=== PATIENT | female | born 1930 | race Caucasian/White ===

== ENCOUNTER 2016-10-30 10:46 | Emergency (ER) | payer MEDICARE, OTHER ==
[~2016-10-30] VITALS: Ht 157.5 cm; Wt 50.0 kg
[2016-10-30 11:12] LABS: GLUCOSE COMMENT 1 Doctor Notified; GLUCOSE,POINT OF CARE 261 MG/DL (70-110)
[2016-10-30] MEDS ORDERED: MIRA50TA PO (11:17)
[2016-10-30] MEDS ORDERED: HYDR-3290 PO (11:17)
[2016-10-30] MEDS ORDERED: LEUC5 PO (11:17)
[2016-10-30] MEDS ORDERED: INSU100I15 SQ (11:17)
[2016-10-30] MEDS ORDERED: ATOR20TA86 PO (11:17)
[2016-10-30] MEDS ORDERED: NITR.4 SL (11:17)
[2016-10-30] MEDS ORDERED: METH2.5 PO (11:17)
[2016-10-30] MEDS ORDERED: LOSA50TA37 PO (11:17)
[2016-10-30] MEDS ORDERED: FOLI1 PO (11:17)
[2016-10-30] MEDS ORDERED: PRED10 PO (11:17)
[2016-10-30] MEDS ORDERED: LIDO700A30 TD (11:17)
[2016-10-30] MEDS ORDERED: RABE20TA60 PO (11:17)
[2016-10-30] MEDS ORDERED: CILO100T PO (11:17)
[2016-10-30] MEDS ORDERED: METF850T2 PO (11:17)
[2016-10-30] MEDS ORDERED: BIMA12.5OS OU (11:17)
[2016-10-30] MEDS ORDERED: PREG50 PO (11:17)
[2016-10-30 12:37] LABS: HEMATOCRIT 31.1 % (36-46); HEMOGLOBIN 9.9 g/dL (12.0-16.0); MEAN CORPUSCULAR HEMOGLOBIN 31.1 pg (26.0-34.0); MEAN CORPUSCULAR HGB CONC 31.8 G/dL (31.0-37.0); MEAN CORPUSCULAR VOLUME 98 fL (80-100); PLATELET COUNT (AUTO) 202 K/uL (150-450); RED BLOOD CELL COUNT(AUTO) 3.18 MIL/uL (4.00-5.20); WHITE BLOOD COUNT (AUTO) 8.1 K/uL (4.5-11.0)
[2016-10-30 12:47] LABS: ANION GAP 11 mmol/L (8-16); CARBON DIOXIDE 24 mmol/L (22-29); CHLORIDE 103 mmol/L (98-107); CREATININE 0.64 mg/dL (0.60-1.30); GLOMERULAR FILTR. RATE CALC > 60 mL/min (>60); POTASSIUM 3.7 mmol/L (3.5-5.1); SODIUM SERUM 138 mmol/L (136-145); UREA NITROGEN, BLOOD 9 mg/dL (7-18)
[2016-10-30 12:53] LABS: ALANINE AMINOTRANSFERASE 18 U/L (12-78); ALBUMIN 2.7 g/dL (3.4-5.0); ASPARTATE AMINOTRANSFERASE 40 U/L (15-37); TOTAL PROTEIN, SERUM 5.9 g/dL (6.4-8.2)
[2016-10-30 13:05] LABS: B-TYPE NATRIURETIC PEPTIDE 236 pg/mL (0-100)
[2016-10-30 13:33] LABS: BAND NEUTROPHILS % (MANUAL) 9 % (1-5); LYMPHOCYTES % (MANUAL) 5 % (22-44); RBC MORPHOLOGY COMMENT ABNORMAL RBC MORPH; TOTAL CELLS COUNTED 100
[2016-10-30 13:52] LABS: APPEARANCE,URINE CLEAR (CLEAR); GLUCOSE, URINE (UA) 500 mg/dL (NEGATIVE); KETONES,URINE 15 mg/dL (NEGATIVE); LEUKOCYTE ESTERASE ,URINE NEGATIVE (NEGATIVE); OCCULT BLOOD,URINE NEGATIVE (NEGATIVE); PROTEIN,URINE NEGATIVE (NEGATIVE)
[2016-10-30 13:53] LABS: ADD UA MICROSCOPIC YES
[2016-10-30 14:05] LABS: RBC,URINE None Seen /HPF (0-2); SQUAMOUS EPITHELIAL CELL,UR Few /LPF (None Seen); WBC,URINE None Seen /HPF (0-5)
[2016-10-30 15:10] VITALS: BP 163/72
== END 2016-10-30 15:34 | disposition home or self-care (01) ==
LOC: EMS 10:49
DX: R60.0 Localized edema (principal); I10 Essential (primary) hypertension; E11.9 Type 2 diabetes mellitus without complications; Z79.4 Long term (current) use of insulin; F32.9 Major depressive disorder, single episode, unspecified; E78.00 Pure hypercholesterolemia, unspecified; M19.90 Unspecified osteoarthritis, unspecified site
CPT/HCPCS: 82962; 93970; 99285